=== PATIENT | female | born 1950 | race Caucasian/White ===

== ENCOUNTER → 2017-02-20 | Outpatient (CLI) | payer MEDICARE ==
--- NOTE | 2017-02-20 18:04 | CT ---
PROCEDURE: Abdomen/Pelvis w/wo Contrast Clinical History: ABDOMEN PAIN Indication: Same as above. Comparison: None. Technique: CT of the abdomen and pelvis was done without and with intravenous contrast, followed by orthogonal reconstructions. Oral contrast was not given for the study. The patient was injected with contrast intravenously, without any documented immediate adverse reactions. This exam was performed according to our departmental dose-optimization program, which includes automated exposure control, adjustment of the mA and/or KV according to the patient's size and/or use of iterative reconstruction technique. Findings: Images through the lung bases do not show any focal infiltrates or pleural effusions. Multiple dilated loops of mid and distal small bowel are noted with normal caliber terminal ileum and normal caliber proximal small bowel. These findings are suspicious for developing small bowel obstruction. Small amount of free fluid is seen in the dependent portion of the pelvis The gallbladder, pancreas, spleen and the bilateral adrenal glands appear unremarkable. A tiny subcentimeter benign cyst is seen in the lateral aspect of the lateral lobe of the left lobe of the liver There is no CT evidence of urinary tract calculi or urinary tract obstruction. A 4 cm benign exophytic cortical cyst is seen arising from the upper pole of the right kidney. There are a few additional tiny benign cysts in the bilateral kidneys The bilateral kidneys enhance with contrast in a normal fashion, without any evidence of hydronephrosis on either side. The bilateral ureters and the bilateral periureteral soft tissues and fat planes are unremarkable. There is no evidence of hydroureter on either side. The urinary bladder is unremarkable . There is no CT evidence of acute appendicitis, pericecal inflammatory change or ileocecal mesenteric adenitis. The ileocecal junction appears unremarkable. There is no CT evidence of acute colonic diverticulitis or colitis or large bowel obstruction. The splenic and portal veins are of normal caliber, without any filling defects. There is no pathological lymphadenopathy in the retroperitoneum or in the pelvic region. There is no evidence of free air in the abdomen or the pelvic region. There is no clinically significant abdominal aortic aneurysm. There is no clinically significant inguinal or ventral hernia. There are no significant acute abnormalities of the bony structures of the abdomen and pelvic region. The paravertebral soft tissues are unremarkable. The remainder of the pelvic structures are unremarkable. Impression: Multiple dilated loops of mid and distal small bowel are noted with normal caliber terminal ileum and normal caliber proximal small bowel. These findings are suspicious for developing small bowel obstruction. Small amount of free fluid is seen in the dependent portion of the pelvis Location of Interpretation: Teleradiology Electronically signed by: Rich Medina MD 02/20/2017 6:03 PM CDT Workstation: [id number]
== END | disposition home or self-care (01) ==
LOC: LAB.O 16:03
PROVIDERS: ATTEND Nurse Practitioner Family
DX: R10.9 Unspecified abdominal pain (principal)